=== PATIENT | female | born 1960 | race Caucasian/White ===

== ENCOUNTER 2022-04-07 01:05 | Day surgery (SDC) | payer OTHER, SELFPAY ==
[2022-04-01 09:18] VITALS: BMI 39.5
--- NOTE | 2022-04-01 09:36 | PC.NURSE ---
Report to the Outpatient Waiting Room, entrance under the green pavilion located off [facility], at time 1130 on date 04/07/22. OR Time: 1330. Time changes happen often and if your time is changed the preop area will call you the afternoon before. - You and your visitor will be asked to self-screen and do not enter if you have any COVID symptoms. - Only one visitor and NO children visitors are allowed at this time. - The patient visitor is requested to leave or wait in car when not with patient due to restrictions. - A mask is required within the hospital. Patients may have clear liquids (water, carbonated beverages, clear teas, apple juice) until 3 hours prior to surgery with a maximum of 20 ounces. - No food from midnight until time of surgery Take the following medications with a SIP of water the morning of surgery: NIFEDIPINE Medications to discontinue per physician: VITAMINS/SUPPLEMENTS Date to take last dose: 04/03/22 Please no make-up, nail [place], hairspray, perfume, deodorant, or body powder the day of surgery. No jewelry (including any body piercings) or valuables the day of surgery, leave them at home. Please take a shower or bath the night before, or the morning of, surgery with an antibacterial soap. Wear comfortable, loose fitting clothing. - Jewelry must be removed prior to entering the operating room. Rings and piercings that are not removed may be cut off. - The hospital will not accept responsibility for valuables. - Please leave all valuables, including medications, at home the day of surgery. If you are going home after surgery, a licensed spike driver must drive you home. - NO public transportation without another adult. - We recommend that an adult stay with you for 24 hours following discharge. - We also recommend that you do not drive, make important decision, drink alcoholic beverages, or take any drugs that were not prescribed by your health care provider for at least 24 hours after your discharge time. Follow any additional instructions given to you from your surgeon. If you or anyone in your household have experienced Covid symptoms in the past week, please notify your surgeon or the nurse liaison at the phone number below for possible testing. Telephone instructions given to PT - YANETH OCHOA and asked if any additional questions and then verbalized understanding. Patient advised to call surgeon office or pre surgery nurse liaison [phone] if any additional questions.
--- NOTE | 2022-04-01 12:48 | SUR.PREOP ---
1010 LEFT VM FOR CATHIE AT DR. ARMSTRONG OFFICE REGARDING MULTIPLE PT COMMENTS DURING PHONE INTERVIEW REGARDING SUICIDE ASSESSMENT.1200 RECEIVED CALL BACK FROM CATHIE, SHE CONTACTED PT WHO STATED SHE DOESN'T HAVE ANY SUICIDAL IDEATIONS AT THIS TIME, IS JUST FRUSTRATED WITH CURRENT HEALTH ISSUES AND WANTS TO GET PROCEDURE OVER WITH. CATHIE STATED DR. REGAN ASKED FOR PT TO COME TO OFFICE FOR VISIT TO DISCUSS MENTAL HEALTH CONCERNS PRIOR TO SURGERY AND PT REFUSED. [address] REGAN'S OFFICE, NOTIFIED THAT PER CARLOS GORMAN, SURGERY DIRECTOR, DR. REGAN MAY SPEAK WITH PT PREOP DAY OF SURGERY AND IF SHE FEELS SHE IS NOT MENTALLY STABLE, PROCEDURE CAN BE CANCELLED AND SOMEONE FROM [facility] MAY PROVIDE MENTAL HEALTH RESOURCES TO PT WHILE HERE.
--- NOTE | 2022-04-07 08:36 | WPDHPUPDATE1 ---
History and Physical Update Update Date/Time: 04/07/22 08:36 History and Physical has been reviewed, including an updated exam of the patient. There are NO changes in the patient's condition. Risks, benefits, and alternatives have been discussed and questions answered. Patient agrees to proceed with procedure.
--- NOTE | 2022-04-07 08:36 | PM.HPGS ---
History of Present Illness History of Present Illness Consent: Risks, benefits, and alternatives have been discussed and questions answered. Patient agrees to proceed with procedure. Chief complaint: low grade squamous intraepithelial lesion,hpv Narrative: Ofelia Garcias is a 61 year old female with low-grade squamous intraepithelial on Pap smear. Colposcopy without visible lesions. Severe cervical stenosis. Endocervical curettings with atypical cells bordering on low-grade squamous intraepithelial lesion. It was recommended to proceed with LEEP conization for further evaluation and treatment. Risks of infection, bleeding, and injury to the surrounding tissues were reviewed. Possible pathology was also discussed. Patient voices understanding and agrees to proceed. Review of Systems Gastrointestinal: Gastrointestinal: Reports heartburn Genitourinary: Genitourinary: Reports vaginal dryness Musculoskeletal: Musculoskeletal: Reports arthralgias [facility] Past Medical History Medical History (Updated 04/07/22 @ 08:43 by Natalie Ortiz MD) COPD (chronic obstructive pulmonary disease) Elevated cholesterol HTN (hypertension) Obesity Surgical History Surgical History (Updated 04/07/22 @ 08:42 by Natalie Ortiz MD) H/O abdominoplasty History of breast biopsy History of History of laparoscopy Right ovarian cyst 1985 History of loop electrical excision procedure (LEEP) 2019 Hx laparoscopic cholecystectomy Hx of breast implants, bilateral In 2004, 2009 Social History Social History Smoking packs per day: 1 Smoking cigarettes per day: 20.0 Years smoked: 40 Smoking pack-years: 40.00 Smoking status: Former smoker Tobacco type: cigarettes Smoking end date: 07/01/21 Alcohol intake: never Substance use: never Substance use type: does not use Living arrangements: with family Spiritual care concerns: No Meds Home Medications and Allergies Home Medications Medication Instructions Recorded Confirmed Type cholecalciferol (vitamin D3) 125 125 mcg PO DAILY 04/01/22 04/01/22 History mcg (5,000 unit) tablet (Vitamin D3) diphenhydramine HCl 25 mg capsule 25 mg PO HS PRN Insomnia 04/01/22 04/01/22 History (Benadryl) ezetimibe 10 mg tablet 10 mg PO DAILY 04/01/22 04/01/22 History hydrochlorothiazide 12.5 mg tablet 12.5 mg PO DAILY 04/01/22 04/01/22 History nifedipine 60 mg tablet,extended 60 mg PO DAILY 04/01/22 04/01/22 History release omeprazole 40 mg capsule,delayed 40 mg PO DAILY 04/01/22 04/01/22 History release vitamin E (dl, acetate) 180 mg 180 mg PO DAILY 04/01/22 04/01/22 History (400 unit) capsule Allergies Allergy/AdvReac Type Severity Reaction Status Date / Time doxycycline Allergy Severe Hives Verified 04/01/22 09:14 Penicillins Allergy Severe HIVES Verified 04/01/22 09:14 Exam Const: General: healthy appearing and alert Orientation/consciousness: patient oriented x3 Resp: Effort & Inspection: normal respiratory effort GI: GI Palp: Yes Soft to palpation, No Tenderness to palpation present (GI) and No Palpable mass present : External Female Exam: normal external appearance Speculum Exam - Vagina: normal appearance of the vagina and normal vaginal discharge Speculum Exam - Cervix: Other cervical findings present (Cervix very atrophic and flush with the posterior wall. Os is very stenoti) Bimanual exam- vagina & uterus: uterine size normal and consistency normal Bimanual Exam- Adnexa, other: normal adnexae and No adnexal tenderness Neuro: General: patient oriented x3 Assessment and Plan Assessment and plan (1) LGSIL (low grade squamous intraepithelial dysplasia): Status: Acute Assessment and Plan: Suboptimal evaluation with endocervical curettings showing no transformation zone. ECC showing atypical cells with suspected low-grade changes. History of a
[2022-04-07 12:20] VITALS: BP 142/75; PULSE 76; RESP 16; TEMP 36.5; O2SAT 98; BMI 40.2
--- NOTE | 2022-04-07 12:43 | P.PNAN_ITS ---
Anes - Initial Pre Proc Eval Procedure: Operation Date: 04/07/22 13:30 Proposed Procedures p Loop Electrical Excision Procedure - Natalie Ortiz MD Date/Time: 04/07/22 12:43 Surgeon: Natalie Ortiz MD Pre Op Diagnosis: low grade squamous intraepithelial lesion,hpv Patient Data Age: 61 Gender: F Height: 1.73 m Weight: 117.93 kg Allergies Allergy/AdvReac Type Severity Reaction Status Date / Time doxycycline Allergy Severe Hives Verified 04/01/22 09:14 Penicillins Allergy Severe HIVES Verified 04/01/22 09:14 Home Medications Medication Instructions Recorded Confirmed Type cholecalciferol (vitamin D3) 125 125 mcg PO DAILY 04/01/22 04/01/22 History mcg (5,000 unit) tablet (Vitamin D3) diphenhydramine HCl 25 mg capsule 25 mg PO HS PRN Insomnia 04/01/22 04/01/22 History (Benadryl) ezetimibe 10 mg tablet 10 mg PO DAILY 04/01/22 04/01/22 History hydrochlorothiazide 12.5 mg tablet 12.5 mg PO DAILY 04/01/22 04/01/22 History nifedipine 60 mg tablet,extended 60 mg PO DAILY 04/01/22 04/01/22 History release omeprazole 40 mg capsule,delayed 40 mg PO DAILY 04/01/22 04/01/22 History release vitamin E (dl, acetate) 180 mg 180 mg PO DAILY 04/01/22 04/01/22 History (400 unit) capsule Patient hx anesthesia problems: none Family hx anesthesia problems: none Results Review: All pre-operative results and documents have been reviewed as part of the pre- operative evaluation. [facility] Past Medical History Medical History COPD (chronic obstructive pulmonary disease) Elevated cholesterol HTN (hypertension) Obesity Surgical History Surgical History H/O abdominoplasty History of breast biopsy History of History of laparoscopy Right ovarian cyst 1985 History of loop electrical excision procedure (LEEP) 2019 Hx laparoscopic cholecystectomy Hx of breast implants, bilateral In 2004, 2009 Social History Social History Smoking packs per day: 1 Smoking cigarettes per day: 20.0 Years smoked: 40 Smoking pack-years: 40.00 Smoking status: Former smoker Tobacco type: cigarettes Smoking end date: 07/01/21 Alcohol intake: never Substance use: never Substance use type: does not use Living arrangements: with family Spiritual care concerns: No Anes - Eval Final PreProcedure Day of Procedure 04/07/22 12:43 Patient weight: obese Heart: regular rate and rhythm Lungs: clear to auscultation Airway: Mallampati scale class II Neurological: alert and oriented Last oral intake: >/= 8 hours ASA classification: III Emergent: no Anesthetic plan: proceed Anesthesia type and monitoring: general GIVS and standard monitoring Results Review: All pre-operative results and documents have been reviewed as part of the pre- operative evaluation. Informed Consent: The patient's anesthetic plan and its attendant risks and benefits were discussed with the patient/family/POA. Questions were solicited and answers provided to the satisfaction of the patient/family/POA.
[2022-04-07] MEDS: LACTATED RINGERS 1,000 ML 30 ML IV CONT (12:50)
[2022-04-07] MEDS: ACETAMINOPHEN 500 MG TABLET 1000 MG PO (12:57)
--- NOTE | 2022-04-07 13:05 | SUR.PREOP ---
Notified Dr. Parra patient's BMP has been received by laboratory and currently pending. Per Dr. Parra can proceed to OR with pending lab work. Notified circulating RN and CARDIOPULMONARY PHYSICAL THERAPIST to proceed to OR per anesthesiologist.
[2022-04-07] MEDS: LIDO 1%/EPINEPHRINE 1:100,000 50 ML VIAL 10 ML INFILTRATE (13:10)
[2022-04-07] MEDS: FERRIC SUBSULFATE 8 ML SOLUTION WITH APPLICATOR TOPICAL (13:10)
[2022-04-07 13:29] LABS: Anion Gap 12 mmol/L (8-16); Blood Urea Nitrogen 18 mg/dL (7-17); Calcium 8.8 mg/dL (8.4-10.2); Carbon Dioxide 22 mmol/L (22-30); Chloride 104 mmol/L (98-107); Estimated CRCL calculation 73 ml/min; Estimated Glomerular Filt Rate 57; Sodium 138 mmol/L (137-145)
--- NOTE | 2022-04-07 13:39 | P.OP_ITS ---
Procedure Note - Detailed Date of Procedure 04/07/22 Pre-op Diagnosis low grade squamous intraepithelial lesion + hpv abnormal cervical anatomy Post-op Diagnosis Same Procedure Performed LEEP with top-hat and endocervical curettings Surgeon Natalie Ortiz MD Anesthesia MAC and Local (1% lidocaine with epinephrine) Findings Posterior cervix from 5 to 8:00 is flush with the vagina. Endocervical canal was not visible. After the LEEP and top-hat, endocervical canal is opened with dilators. Description of Procedure The patient is taken to the operating room and placed under anesthesia in the dorsal lithotomy position. She was prepped and draped externally. The coated [place] speculum [place] is placed. The posterior cervix is flush with the vagina and the speculum will not stay open without counter traction. The vagina is atrophic. The cervix is injected in each quadrant with 1% lidocaine with epinephrine. A 1.5x1cm loop is used for a single pass LEEP mostly incorporating the anterior cervix. A 1x1cm loop is used for a top-hat performed in a single pass. The small dilator is used to identify the endocervix and the cervix was dilated to a 5 Hegar. The endocervical curettings were taken using a Kevorkian curette. Monsel's solution is applied to the cone bed and good hemostasis is noted. All instruments are removed. Estimated Blood Loss 5 Drains No Packing No Pathology Yes (LEEP marked at 12, top-hat, endocervical curettings) Complications No immediate complications Condition Stable Disposition PACU
[2022-04-07 13:43] VITALS: BP 113/50; PULSE 69; RESP 14; O2SAT 97
[2022-04-07 14:13] VITALS: BP 139/64; PULSE 73; RESP 14; O2SAT 98
[2022-04-07 14:43] VITALS: BP 138/63; PULSE 77; RESP 14
[2022-04-07 15:00] VITALS: BP 135/83; PULSE 65; RESP 14
--- NOTE | 2022-04-07 17:16 | SUR.PHASEII ---
pt complained about vaginal irritation, she requested a kristen bottle. i obtained from ob. pt uesed and had much relief.
== END 2022-04-07 15:10 | disposition home or self-care (01) ==
PROVIDERS: Anesthesiology; PCP Nurse Practitioner Family; Visit Provider Obstetrics & Gynecology Gynecology
PROC: 0UBC7ZZ Excision of Cervix, Via Natural or Artificial Opening (ICD-10-PCS; CPT 57522; principal; 2022-04-07 13:30)
DX: R87.612 Low grade squamous intraepithelial lesion on cytologic smear of cervix (LGSIL) (principal); I10 Essential (primary) hypertension; J44.9 Chronic obstructive pulmonary disease, unspecified; E78.00 Pure hypercholesterolemia, unspecified; Z87.891 Personal history of nicotine dependence; E66.9 Obesity, unspecified; Z68.41 Body mass index [BMI] 40.0-44.9, adult
CPT/HCPCS: 57522; 36415; 80048; 88305; 88307; A9270; J1100; J2250; J2405; J2704; J3010; J7120

== ENCOUNTER → 2022-04-07 16:51 | Outpatient (CLI) | payer OTHER, SELFPAY ==
--- NOTE | ~2022-04-07 | XR_ITS ---
EXAM: XR lumbar spine 2-3V DATE: 04/07/2022 17:55 HISTORY: RADICULOPATHY LUMBOSACRAL REGION . COMPARISON: None available. FINDINGS: Decreased mineralization. Cholecystectomy clips. 5 nonrib-bearing lumbar-type vertebral justina dies. Pedicles intact. 2 mm anterolisthesis at L4-5. Vertebral body heights preserved. Concave endpla te deformities as can be seen with osteoporosis. Multilevel mild disc space narrowing and marginal os teophytosis. Multilevel facet hypertrophy and sclerosis, with interspinous narrowing. No fracture or dislocation. Aortic calcification without evident aneurysm. IMPRESSION: Grade 1 anterolisthesis at L4-5. Multilevel moderate and severe facet arthropathy. Multil evel mild degenerative disc disease. Reviewed, dictated and finalized at location K. IMPRESSION: Grade 1 anterolisthesis at L4-5. Multilevel moderate and severe fac et arthropathy. Multilevel mild degenerative disc disease.
== END ==
PROVIDERS: PCP Nurse Practitioner Family; Visit Provider Pain Medicine Interventional Pain Medicine
DX: M47.816 Spondylosis without myelopathy or radiculopathy, lumbar region (principal); I70.0 Atherosclerosis of aorta
CPT/HCPCS: 72100

== ENCOUNTER 2022-04-22 15:10 | Outpatient (CLI) | payer OTHER, SELFPAY ==
--- NOTE | ~2022-04-22 | MR_ITS ---
EXAMINATION: MR lumbar spine wo con DATE: 04/22/2022 15:53 INDICATION: Lumbosacral radiculopathy. TECHNIQUE: Magnetic resonance imaging (MRI) of the lumbar spine was performed without intravenous con trast. Sequences included sagittal T2-weighted FSE, sagittal T2-weighted FS FSE, sagittal T1-weighted FSE, and axial T2-weighted FSE. COMPARISON: None FINDINGS: 7 degrees thoracolumbar levocurvature. Sagittal alignment is normal. Vertebral body heights are sabiha l. Normal marrow signal. Minimal disc height loss at L2-L3 through L4-L5. The conus medullaris termi nates at L1. There is normal signal in the caudal spinal cord. Paravertebral soft tissues are unremar kable. The following disc levels are specifically discussed: T12-L1: Disc is minimally bulging. There is mild left and moderate right facet joint osteoarthritis. There is no neural foraminal stenosis. There is no central canal stenosis. L1-L2: Disc is mildly bulging with superimposed right subarticular zone disc protrusion. There is mod erate bilateral facet joint osteoarthritis. There is mild bilateral, right greater than left neural f oraminal stenosis. There is mild central canal stenosis. L2-L3: Disc is mildly bulging. There is moderate to severe left and severe right facet joint osteoart hritis. There is mild bilateral neural foraminal stenosis. There is no central canal stenosis. L3-L4: Disc is mildly bulging. There is severe bilateral facet joint osteoarthritis. There is mild bi lateral neural foraminal stenosis. There is mild central canal stenosis. L4-L5: Moderate diffuse disc bulge with superimposed annular fissure and small left paracentral disc extrusion with disc material extending 3 mm cephalad to the level of the inferior endplate of L4. The re is severe bilateral facet joint osteoarthritis. There is mild bilateral neural foraminal stenosis. There is mild central canal stenosis. L5-S1: Disc is minimally bulging. There is severe bilateral facet joint osteoarthritis. There is mini mal bilateral neural foraminal stenosis. There is no central canal stenosis. IMPRESSION: 1. Mild thoracolumbar levocurvature with mild spondylosis. Reviewed, dictated and finalized at location A.
== END 2022-04-22 15:11 ==
PROVIDERS: PCP Nurse Practitioner Family; Visit Provider Pain Medicine Interventional Pain Medicine
DX: E66.9 Obesity, unspecified (principal); F41.1 Generalized anxiety disorder; M47.26 Other spondylosis with radiculopathy, lumbar region; M47.27 Other spondylosis with radiculopathy, lumbosacral region; M51.16 Intervertebral disc disorders with radiculopathy, lumbar region
CPT/HCPCS: 72148

== ENCOUNTER → 2022-09-12 14:27 | Outpatient (CLI) | payer OTHER, SELFPAY ==
--- NOTE | ~2022-09-12 | DEXA_ITS ---
Bone Density Report Name: YANETH OCHOA Age: 62 Sex: Female Ethnicity: White Date of : 1960 Indication: osteopenia; postmenopausal Referring Provider: TAYA REGAN Study: Bone densitometry was performed. Exam Date: September 12, 2022 Accession number: [id number] Bone Density: Region BMD T-score Z-score Classification AP Spine (L1, L2, L3) 1.003 -0.1 1.2 Normal Femoral Neck (Left) 0.671 -1.6 -0.3 Osteopenia Total Hip (Left) 0.855 -0.7 0.2 Normal Femoral Neck (Right) 0.644 -1.8 -0.6 Osteopenia Total Hip (Right) 0.792 -1.2 -0.3 Osteopenia Total Hip Mean 0.824 -1.0 -0.1 Normal World Health Organization criteria for BMD impression classify patients as: Normal (T-score at or above -1.0), Osteopenia (T-score between -1.0 and -2.5), or Osteoporosis (T-score at or below -2.5). 10-year Fracture Risk(1): Major Osteoporotic Fracture 8.1% Hip Fracture 0.8% Reported Risk Factors: [place] (), Neck BMD=0.644, BMI=37.9 (1) FRAX(R) Version 3.08. Fracture probability calculated for an untreated patient. Fracture probability may be lower if the patient has received treatment. Previous Exams: Region Exam Age BMD T-score BMD Change BMD Change Date g/cm2 vs Baseline vs Previous AP Spine(L1, L2, L3) 09/12/2022 62 1.003 -0.1 0.039 0.039 02/15/2015 54 0.964 -0.5 Total Hip(Left) 09/12/2022 62 0.855 -0.7 0.000 0.000 02/15/2015 54 0.855 -0.7 Total Hip(Right) 09/12/2022 62 0.792 -1.2 -0.010 -0.010 02/15/2015 54 0.802 -1.1 *Denotes significance at 95% confidence level, LSC for AP Spine = 0.022 g/cm2, LSC for Total Hip = 0.027 g/cm2 Clinical Information Provided by Patient: Has used the following medications: Vitamin D Patient maximum height was 68 Menopause Age: 50 No regular weight bearing exercise Does not regularly consume dairy products Drinks caffeinated beverages Onset of menses at age 16 Number of children 1 Impression: The patient has low bone mass, based on the Right Femoral Neck T-score. The patient has an estimated ten-year risk of hip fracture of 0.8% and an estimated ten-year risk of major fracture of 8.1%, based on the WHO FRAX algorithm. No significant bone loss was observed. Discussion: BONE DENSITY IS LOW AT ONE OR MORE SKELETAL SITES. This patient's lowest T-score is low at one or more skeletal sites. It meets the World Health Organization's
== END ==
PROVIDERS: PCP Nurse Practitioner Family; Visit Provider Obstetrics & Gynecology Gynecology
DX: Z78.0 Asymptomatic menopausal state (principal); M85.852 Other specified disorders of bone density and structure, left thigh; M85.851 Other specified disorders of bone density and structure, right thigh
CPT/HCPCS: 77080

== ENCOUNTER 2023-07-08 02:51 | Day surgery (SDC) | payer OTHER, SELFPAY ==
[2023-06-18 15:12] VITALS: BMI 35.1
--- NOTE | 2023-07-06 08:37 | SUR.PREOP ---
Patient called regarding upcoming procedure. Message left on pt's regarding appointment times.
--- NOTE | 2023-07-06 14:10 | PM.HPGS ---
History of Present Illness History of Present Illness Consent: Risks, benefits, and alternatives have been discussed and questions answered. Patient agrees to proceed with procedure. Chief complaint: history of colon polyps Narrative: Ofelia Garcias is a 62 year old female referred for colon cancer screening. Review of Systems Review of Systems: All systems reviewed & are unremarkable except as noted in HPI and below PMFSH Past Medical History Medical History COPD (chronic obstructive pulmonary disease) Elevated cholesterol HTN (hypertension) Obesity Surgical History Surgical History H/O abdominoplasty History of breast biopsy History of History of laparoscopy Right ovarian cyst 1985 History of loop electrical excision procedure (LEEP) 2019 Hx laparoscopic cholecystectomy Hx of breast implants, bilateral In 2004, 2009 Social History Social History Smoking packs per day: 1 Smoking cigarettes per day: 20.0 Years smoked: 40 Smoking pack-years: 40.00 Smoking status: Former smoker Tobacco type: cigarettes Smoking end date: 07/01/21 Alcohol intake: never Substance use: never Substance use type: does not use Living arrangements: with family Spiritual care concerns: No Meds Home Medications and Allergies Home Medications Medication Instructions Recorded Confirmed Type cholecalciferol (vitamin D3) 125 125 mcg PO DAILY 04/01/22 06/18/23 History mcg (5,000 unit) tablet (Vitamin D3) diphenhydramine HCl 25 mg capsule 25 mg PO HS PRN Insomnia 04/01/22 06/18/23 History (Benadryl) ezetimibe 10 mg tablet 10 mg PO DAILY 04/01/22 06/18/23 History vitamin E (dl, acetate) 180 mg 180 mg PO DAILY 04/01/22 06/18/23 History (400 unit) capsule aspirin 81 mg tablet 81 mg PO DAILY 06/18/23 06/18/23 History red yeast rice 600 mg capsule 600 mg PO DAILY 06/18/23 06/18/23 History Allergies Allergy/AdvReac Type Severity Reaction Status Date / Time doxycycline Allergy Severe Hives Verified 06/18/23 15:30 Penicillins Allergy Severe HIVES Verified 06/18/23 15:30 Exam Resp: Auscultation: clear to auscultation bilaterally Cardio: Rate: regular rate Rhythm: regular rhythm GI: GI Palp: Yes Soft to palpation and No Tenderness to palpation present (GI) Assessment and Plan Assessment and plan (1) Colon cancer screening: Code(s): Z12.11 - Encounter for screening for malignant neoplasm of colon Status: Acute Assessment and Plan: Colonoscopy with possible biopsy or polypectomy or cautery or injection of substances.
[2023-07-08 09:10] VITALS: BP 116/60; PULSE 70; RESP 18; TEMP 36.3; O2SAT 100; BMI 34.7
[2023-07-08] MEDS: LACTATED RINGERS 1,000 ML 150 ML IV CONT (09:36)
--- NOTE | 2023-07-08 09:42 | WPDANESEPPF ---
Anes - Initial Pre Proc Eval Procedure: Operation Date: 07/08/23 10:30 Proposed Procedures p Colonoscopy - Dwayne Chen MD Date/Time: 07/08/23 09:42 Surgeon: Dwayne Chen MD Pre Op Diagnosis: history of colon polyps Patient Data Age: 62 Gender: F Height: 1.73 m Weight: 103.8 kg Last Vital Signs Temp 36.3 C L 07/08/23 09:10 Pulse 70 07/08/23 09:10 Resp 18 07/08/23 09:10 BP 116/60 07/08/23 09:10 Pulse Ox 100 07/08/23 09:10 O2 Del Method Room Air 07/08/23 09:10 Allergies Allergy/AdvReac Type Severity Reaction Status Date / Time doxycycline Allergy Severe Hives Verified 06/18/23 15:30 Penicillins Allergy Severe HIVES Verified 06/18/23 15:30 Home Medications Medication Instructions Recorded Confirmed Type cholecalciferol (vitamin D3) 125 125 mcg PO DAILY 04/01/22 06/18/23 History mcg (5,000 unit) tablet (Vitamin D3) diphenhydramine HCl 25 mg capsule 25 mg PO HS PRN Insomnia 04/01/22 06/18/23 History (Benadryl) ezetimibe 10 mg tablet 10 mg PO DAILY 04/01/22 06/18/23 History vitamin E (dl, acetate) 180 mg 180 mg PO DAILY 04/01/22 06/18/23 History (400 unit) capsule aspirin 81 mg tablet 81 mg PO DAILY 06/18/23 06/18/23 History red yeast rice 600 mg capsule 600 mg PO DAILY 06/18/23 06/18/23 History Patient hx anesthesia problems: none Family hx anesthesia problems: none Results Review: All pre-operative results and documents have been reviewed as part of the pre-operative evaluation. [facility] Past Medical History Medical History COPD (chronic obstructive pulmonary disease) Elevated cholesterol HTN (hypertension) Obesity Surgical History Surgical History H/O abdominoplasty History of breast biopsy History of History of laparoscopy Right ovarian cyst 1985 History of loop electrical excision procedure (LEEP) 2019 Hx laparoscopic cholecystectomy Hx of breast implants, bilateral In 2004, 2009 Social History Social History Smoking packs per day: 1 Smoking cigarettes per day: 20.0 Years smoked: 40 Smoking pack-years: 40.00 Smoking status: Former smoker Tobacco type: cigarettes Smoking end date: 07/01/21 Alcohol intake: never Substance use: never Substance use type: does not use Living arrangements: with family Spiritual care concerns: No Anes - Eval Final PreProcedure Day of Procedure 07/08/23 09:42 Patient weight: obese Heart: regular rate and rhythm Lungs: decreased breath sounds Airway: Mallampati scale class II Neurological: alert and oriented Last oral intake: >/= 8 hours ASA classification: III Emergent: no Anesthetic plan: proceed Anesthesia type and monitoring: general GIVS and standard monitoring Results Review: All pre-operative results and documents have been reviewed as part of the pre-operative evaluation. Informed Consent: The patient's anesthetic plan and its attendant risks and benefits were discussed with the patient/family/POA. Questions were solicited and answers provided to the satisfaction of the patient/family/POA.
[2023-07-08 10:10] VITALS: BP 97/44; PULSE 64; RESP 20; O2SAT 97
[2023-07-08 10:20] VITALS: BP 109/59; PULSE 60; RESP 20; O2SAT 98
[2023-07-08 10:30] VITALS: BP 106/75; PULSE 58; RESP 20; O2SAT 100
== END 2023-07-08 10:39 | disposition home or self-care (01) ==
PROVIDERS: PCP Nurse Practitioner Family; Visit Provider Internal Medicine Gastroenterology
PROC: 0DJD8ZZ Inspection of Lower Intestinal Tract, Via Natural or Artificial Opening Endoscopic (ICD-10-PCS; CPT 45378; principal; 2023-07-08 10:30)
DX: Z12.11 Encounter for screening for malignant neoplasm of colon (principal); K57.30 Diverticulosis of large intestine without perforation or abscess without bleeding; Z86.010 Personal history of colon polyps; I10 Essential (primary) hypertension; E78.00 Pure hypercholesterolemia, unspecified; J44.9 Chronic obstructive pulmonary disease, unspecified; Z79.82 Long term (current) use of aspirin; E66.9 Obesity, unspecified; Z68.34 Body mass index [BMI] 34.0-34.9, adult; Z87.891 Personal history of nicotine dependence
CPT/HCPCS: 45378; J2704; J7120

== ENCOUNTER 2024-01-01 12:40 | Outpatient (CLI) | payer OTHER, SELFPAY ==
--- NOTE | ~2024-01-01 | MR_ITS ---
EXAMINATION: MR lumbar spine wo con DATE: 01/01/2024 13:08 INDICATION: Low back pain. Lumbar radiculopathy. TECHNIQUE: Magnetic resonance imaging (MRI) of the lumbar spine was performed without intravenous con trast. Sequences included sagittal T2-weighted FSE, sagittal T2-weighted FS FSE, sagittal T1-weighted FSE, and axial T2-weighted FSE. COMPARISON: Lumbar spine MRI 04/22/2022 FINDINGS: There is 9 degrees levocurvature of thoracic lumbar spine. There is 3 mm anterolisthesis of L4 on L5. Vertebral body heights are normal. Intervertebral disc heights are normal. The distal spin al cord signal intensity is normal. The conus medullaris is at T12-L1. The following disc levels are specifically discussed: L1-L2: The disc is bulging. There is severe bilateral facet joint osteoarthritis. There is mild right neural foraminal stenosis. There is mild central canal stenosis. L2-L3: The disc is bulging. There is severe bilateral facet joint osteoarthritis. There is mild bilat eral neural foraminal stenosis. There is no central canal stenosis. L3-L4: The disc is bulging and has an annular fissure. There is severe bilateral facet joint osteoart hritis. There is mild bilateral neural foraminal stenosis. There is mild central canal stenosis. L4-L5: The disc is bulging with superimposed left central extrusion. There is severe bilateral facet joint osteoarthritis. There is mild bilateral neural foraminal stenosis. There is mild central canal stenosis. L5-S1: The disc does not extend beyond the endplate margin. There is severe bilateral facet joint ost eoarthritis. There is mild left neural foraminal stenosis. There is no central canal stenosis. IMPRESSION: 1. Mild lumbar spondylosis, stable from 04/22/2022. Reviewed, dictated and finalized at location E.
--- NOTE | ~2024-01-01 | XR_ITS ---
SINGLE AP VIEW PELVIS Ordering provider: Koki Miller MD History: . SACROILITIS . Comparison: None. FINDINGS: BONES: No acute fracture or dislocation. HIP JOINT SPACES: Mild osteoarthritic changes. SACROILIAC JOINT SPACES/LUMBAR SPINE: The sacroiliac joint spaces shows mild osteoarthritic changes. Mild degenerative changes of the visualized lower lumbar spine. PUBIC SYMPHYSIS: Pubic symphysitis. SOFT TISSUES: Normal. IMPRESSION: No acute osseous abnormality pelvis. Reviewed, dictated and finalized at location A.
== END 2024-01-01 12:41 ==
LOC: MICIMG 12:41
PROVIDERS: PCP Nurse Practitioner Family; Visit Provider Physical Medicine & Rehabilitation Pain Medicine
DX: M53.3 Sacrococcygeal disorders, not elsewhere classified (principal); M47.26 Other spondylosis with radiculopathy, lumbar region
CPT/HCPCS: 72148; 72190

== ENCOUNTER 2024-10-21 11:39 | Outpatient (CLI) | payer OTHER, SELFPAY ==
--- NOTE | ~2024-10-21 | CT_ITS ---
CT Scan of the Chest without Contrast: Clinical Indication: Lung cancer screening, nicotine dependence Technique: Contiguous sections were acquired throughout the chest without intravenous contrast. Dose reduction technique was used on this scan by utilizing automated exposure control and iterative recon struction technique. The dose-length product (DLP) was 311.73 mGy-cm. Findings: There is no evidence of any significant mediastinal, hilar or axillary lymphadenopathy. Coronary iván ry calcifications are present. There is no evidence of pleural or pericardial effusion. 5 mm anterior right upper lobe nodule present (axial image 33). Additional 3 mm right upper lobe pulm onary nodule present (axial image 53). 3 mm groundglass right lower lobe pulmonary nodule present (ax ial image 96). Images through the upper abdomen reveal no abnormalities. Impression: Lung RADS 2: Benign appearance. 12 month follow-up screening CT advised. Reviewed, dictated and finalized at [facility]. Impression: Lung RADS 2: Benign appearance. 12 month follow-up screening CT advised.
== END 2024-10-21 11:40 | disposition home or self-care (01) ==
LOC: MICIMG 11:40
PROVIDERS: PCP Internal Medicine; Visit Provider Internal Medicine
DX: Z12.2 Encounter for screening for malignant neoplasm of respiratory organs (principal); F17.210 Nicotine dependence, cigarettes, uncomplicated
CPT/HCPCS: 71271